=== PATIENT | female | born 1950 | race Caucasian/White ===

== ENCOUNTER 2019-02-20 17:43 | Inpatient (IN) | payer MEDICARE, BC ==
[~2019-02-20] VITALS: Ht 157.5 cm; Wt 88.5 kg
[2019-02-20] VITALS (8 sets, daily range): BP systolic 123–209; BP diastolic 60–104
--- NOTE | ~2019-02-20 | EKG ---
[place], [place] ELECTROCARDIOGRAM REPORT NAME: ALDO FELIX UNIT #: [id number] ROOM: 522 DOCTOR: EPIPHANY DRAFT REPORT BIRTHDATE: [birth year] [facility] Test Date: 2019-02-21 Test Time: 00:00:46 Pat Name: ALDO FELIX Department: Room: 522 Gender: F Steelscope Operator: Cheryl Wright : 1950 Requested By: ALICIA JOHNSON DNP Order Number: [id number] Reading MD: Ac Fuller MD Measurements Intervals [place] Rate: 67 P: 33 [place]: 155 QRS: -41 QRSD: 140 T: -10 QT: 454 QTc: 480 Interpretive Statements Sinus rhythm RBBB LAD Left ventricular hypertrophy Electronically Signed On 02-22-2019 15:38:25 PDT by Ac Fuller MD CM:EKGRPT:ELECTROCARDIOGRAM REPORT [id number] ALICIA JOHNSON DNP EPIPHANY DRAFT REPORT ALICIA JOHNSON DNP
--- NOTE | ~2019-02-20 | EKG ---
[place], [place] ELECTROCARDIOGRAM REPORT NAME: ALDO FELIX UNIT #: [id number] ROOM: 522 DOCTOR: NATOINETTE DRAFT REPORT BIRTHDATE: [birth year] [facility] Test Date: 2019-02-20 Test Time: 18:23:40 Pat Name: ALDO FELIX Department: Room: 522 Gender: F Brick Tender: : 1950 Requested By: ALICIA JOHNSON DNP Order Number: [id number] Reading MD: Ac Fuller MD Measurements Intervals [place] Rate: 70 P: 34 [place]: 145 QRS: -48 QRSD: 140 T: 6 QT: 436 QTc: 471 Interpretive Statements Sinus rhythm RBBB and LAFB Left ventricular hypertrophy No previous ECG available for comparison Electronically Signed On 02-22-2019 15:28:31 PDT by Ac Fuller MD CM:EKGRPT:ELECTROCARDIOGRAM REPORT [id number] ALICIA CURRY DRAFT REPORT ALICIA JOHNSON DNP
--- NOTE | ~2019-02-20 | EKG ---
[place], [place] ELECTROCARDIOGRAM REPORT NAME: ALDO FELIX UNIT #: [id number] ROOM: 522 DOCTOR: EPIPHANY DRAFT REPORT BIRTHDATE: [birth year] [facility] Test Date: 2019-02-20 Test Time: 21:20:27 Pat Name: ALDO FELIX Department: Room: 522 Gender: F Core Java Engineer: : 1950 Requested By: ALICIA JOHNSON DNP Order Number: [id number] Reading MD: Ac Fuller MD Measurements Intervals [place] Rate: 73 P: 28 [place]: 154 QRS: -47 QRSD: 144 T: -8 QT: 437 QTc: 482 Interpretive Statements Sinus rhythm RBBB and LAFB Left ventricular hypertrophy No previous ECG available for comparison Electronically Signed On 02-22-2019 15:34:05 PDT by Ac Fuller MD CM:EKGRPT:ELECTROCARDIOGRAM REPORT [id number] 1534 ALICIA JOHNSON DNP EPIPHANY DRAFT REPORT ALICIA JOHNSON DNP
[~2019-02-20 17:43] MED LIST: AUGMENTIN 875875 MG PO; CELEXA10 MG PO; LIPITOR10 MG PO; NEXIUM40 MG PO; SIMCOR 500 MG-21 TER PO; TYLENOL W/CODEI1 TA2 PO
[2019-02-20 18:31] LABS: BASO % 0.5 % (0.0-1.0); EOS # 0.1 10*3/uL (0.0-0.4); HEMOGLOBIN 13.2 g/dl (12.0-16.0); LYMPH # 2.9 10*3/uL (1.3-4.4); MEAN CELL VOLUME 92.6 fl (81.0-99.0); MEAN CORPUSCULAR HGB 29.8 pg (27.0-31.0); MEAN CORPUSCULAR HGB CONC 32.2 g/dl (33.0-37.0); MEAN PLATELET VOLUME 10.4 fl (9.6-12.3); MONO # 0.5 10*3/uL (0.1-1.0); MONO % 6.1 % (3.0-9.0); NEUT # 4.4 10*3/uL (2.3-7.9); NEUT % 55.1 % (47.0-73.0); PLATELET COUNT AUTOMATED 268 10*3/uL (130-400); RED BLOOD COUNT 4.43 10*6/uL (4.10-5.10); RED CELL DISTRI WIDTH 12.4 % (0-14.5); WHITE BLOOD COUNT 7.9 10*3/uL (4.8-10.8)
[2019-02-20 18:43] LABS: BILIRUBIN NEGATIVE (NEGATIVE); BLOOD NEGATIVE (NEGATIVE); CLARITY CLEAR (CLEAR); COLOR STRAW (YELLOW); GLUCOSE NEGATIVE (NEGATIVE); KETONE NEGATIVE (NEGATIVE); LEUKO ESTERASE NEGATIVE (NEGATIVE); NITRITE NEGATIVE (NEGATIVE); UROBILINOGEN 0.2 E.U./dl (0.2-1.0)
[2019-02-20 18:44] LABS: ACT PARTIAL THROMBO TIME 26.9 SECONDS (20.0-32.1); INTERNATIONAL NORM RATIO 0.9 (2.0-3.5)
[2019-02-20 18:47] LABS: ALKALINE PHOSPHATASE 81 U/L (45-117); BUN 14 mg/dl (7-24); CHLORIDE 107 mmol/L (98-107); CREATININE 0.76 mg/dL (0.55-1.02); LIPASE 96 U/L (73-393); POTASSIUM 3.6 mmol/L (3.5-5.1); SGOT/AST 30 IU/L (3-35); SGPT/ALT 41 U/L (12-78); SODIUM 139 mmol/L (136-145); TOTAL PROTEIN 7.7 gm/dL (6.4-8.2); TROPONIN I < 0.015 ng/ml (<0.045)
[2019-02-20 19:56] LABS: EPITHELIAL CELLS 0-2; RBC 0-2 rbc/hpf (0-2); WBC 0-2 wbc/hpf (0-5)
--- NOTE | 2019-02-20 21:50 | NUR ---
Time: 2149 A 68 year old female admitted to 5E under services of JOHANN SINGLETON DO. Pt. arrived via bed from ER. Chief complaint: pt states her blood pressure has been elevated and she has been dizzy. pt. states she has been having alot of stress with the passing of her and father just recently. GRACIE RAMIREZ
[2019-02-20] MEDS ORDERED: CITALOPRAM20 MG PO (22:20)
[2019-02-20] MEDS ORDERED: OMEPRAZOLE40 MG PO (22:22)
[2019-02-20] MEDS ORDERED: XANAX0.25 MG PO (22:24)
[2019-02-20] MEDS ORDERED: VITAMIN D-32000 UNI1 PO (22:25)
[2019-02-20] MEDS ORDERED: MULTI-VITAMIN1 EACH PO (22:26)
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
[2019-02-21] VITALS: BP 144/76
--- NOTE | 2019-02-21 03:20 | NUR ---
Sleeping no acute distress noted.
[2019-02-21 08:00] VITALS: BP 140/72
--- NOTE | 2019-02-21 10:12 | NUR ---
IN TO ROOM, PATIENT AWAKE, ALERT AND ORIENTED. PLEASANT AND COOPERATIVE WITH MEDICATIONS AND ASSESSMENT. FAMILY MEMBER AT BEDSIDE. PT STATES SHE FEELS MUCH BETTER TODAY. BED IN LOWEST LOCKED POSITION, CALL LIGHT WITHIN REACH. WILL CONTINUE TO MONITOR.
[2019-02-21] MEDS ORDERED: LISINOPRIL5 MG PO (10:37)
--- NOTE | 2019-02-21 11:13 | NUR ---
Discharge instructions reviewed with patient/family. Patient receptive and verbalizes understanding. Follow-up care arranged. Written instructions given to patient/family. NANCY JOHN
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
== END 2019-02-21 11:13 | disposition home or self-care (01) | DRG 305 ==
LOC: ED 17:43 → EDHOLD 20:50 → 5E 20:50
PROVIDERS: Nurse Practitioner Family; ADMIT Internal Medicine
DX: I16.1 Hypertensive emergency (principal); E66.9 Obesity, unspecified; E83.41 Hypermagnesemia; K21.9 Gastro-esophageal reflux disease without esophagitis; F32.9 Major depressive disorder, single episode, unspecified; F41.9 Anxiety disorder, unspecified; E78.5 Hyperlipidemia, unspecified; K44.9 Diaphragmatic hernia without obstruction or gangrene; Z98.49 Cataract extraction status, unspecified eye; Z82.49 Family history of ischemic heart disease and other diseases of the circulatory system; Z82.0 Family history of epilepsy and other diseases of the nervous system; Z79.899 Other long term (current) drug therapy; Z68.35 Body mass index [BMI] 35.0-35.9, adult

== ENCOUNTER → 2019-08-31 | Outpatient (CLI) | payer MEDICARE, BC, OTHER ==
[~2019-08-31] MED LIST changes: +CITALOPRAM20 MG PO; +LISINOPRIL5 MG PO; +MULTI-VITAMIN1 EACH PO; +OMEPRAZOLE40 MG PO; +VITAMIN D-32000 UNI1 PO; +XANAX0.25 MG PO
[2019-08-31 07:57] LABS: BASO # 0.1 10*3/uL (0.0-0.1); BASO % 0.7 % (0.0-1.0); EOS # 0.1 10*3/uL (0.0-0.4); EOS % 1.5 % (1.0-4.0); HEMATOCRIT 40.5 % (37.0-47.0); LYMPH # 2.2 10*3/uL (1.3-4.4); LYMPH % 32.9 % (27.0-41.0); MEAN CELL VOLUME 91.6 fl (81.0-99.0); MEAN CORPUSCULAR HGB 29.6 pg (27.0-31.0); MEAN CORPUSCULAR HGB CONC 32.3 g/dl (33.0-37.0); MEAN PLATELET VOLUME 10.5 fl (9.6-12.3); MONO # 0.4 10*3/uL (0.1-1.0); MONO % 6.2 % (3.0-9.0); NEUT % 58.6 % (47.0-73.0); PLATELET COUNT AUTOMATED 281 10*3/uL (130-400); RED BLOOD COUNT 4.42 10*6/uL (4.10-5.10); RED CELL DISTRI WIDTH 12.5 % (0-14.5); WHITE BLOOD COUNT 6.8 10*3/uL (4.8-10.8)
[2019-08-31 08:27] LABS: BUN 16 mg/dl (7-24); CHLORIDE 106 mmol/L (98-107); CHOLESTEROL 228 mg/dL (<200); CREATININE 0.81 mg/dL (0.55-1.02); FREE T4 0.98 ng/dl (0.76-1.46); HDL CHOLESTEROL 43 mg/dl (40-60); LDL CHOLESTEROL 154 mg/dL (9-159); POTASSIUM 4.2 mmol/L (3.5-5.1); SODIUM 139 mmol/L (136-145); TRIGLYCERIDES 157 mg/dl (<150); VLDL CHOLESTEROL 31 mg/dL (6-40)
== END ==
LOC: LAB 06:49
PROVIDERS: Family Medicine
DX: E78.5 Hyperlipidemia, unspecified (principal); Z00.00 Encounter for general adult medical examination without abnormal findings